=== PATIENT | female | born 1940 | race Caucasian/White ===

== ENCOUNTER 2024-02-21 11:17 | Emergency (ER) | payer OTHER ==
[2024-02-21] MEDS ORDERED: NA CHLORIDE 0.9% 1,000 ML ONE (13:15)
[2024-02-21 13:32] LABS: Absolute Eosinophils 0.3 K/uL (0-0.5); Absolute Lymphocytes (CBC) 0.7 K/uL (0.7-4.9); Absolute Monocytes 0.6 K/uL (0.1-1.3); Absolute Neutrophil 5.1 K/uL (1.8-8.0); Basophils % 0.6 % (0-1.3); Eosinophils % 4.1 % (0-4.4); Hemoglobin 11.1 g/dL (12.0-15.0); Lymphocytes % 9.8 % (15.3-44.8); MCH 27.1 pg (27.0-35.0); MCHC 31.6 g/dL (32.0-36.0); MCV 85.8 fL (80-100); MPV 8.2 fL (7.6-11.3); Monocytes % 8.8 % (3.3-12.3); Neutrophils % 76.7 % (41.7-73.7); Nucleated Red Blood Cells % 0.1 % (0-0); Platelets 318 thou/uL (152-406); RBC Red Blood Cell Count 4.09 M/uL (3.86-4.86); Red Cell Distribution Width 16.9 % (12.1-15.2)
[2024-02-21 13:33] LABS: Specific Gravity 1.016 (1.005-1.030); Urine Bilirubin NEGATIVE (Negative); Urine Blood Negative (Negative); Urine Clarity Clear (Clear); Urine Color Light-Yellow (Yellow); Urine Glucose NEGATIVE (Negative); Urine Ketones NEGATIVE (Negative); Urine Microscopic Reflex YN NO UMIC; Urine Nitrite NEGATIVE (Negative); Urine Protein NEGATIVE (Negative); Urine Urobilinogen Normal (Normal); Urine pH 5.5 (5.0-7.0)
[2024-02-21 13:46] LABS: Albumin 3.5 g/dL (3.4-5.0); Albumin/Globulin Ratio 0.8 (1.1-1.8); Anion Gap 12.6 mEq/L (5.0-15.0); Bilirubin Total 0.3 mg/dL (0.2-1.0); Globulin 4.5 g/dL (2.3-3.5); Potassium 4.6 mEq/L (3.5-5.1)
--- NOTE | 2024-02-21 14:33 | RAD REPORT ---
EXAMINATION: CT ABDOMEN AND PELVIS WITH CONTRAST CLINICAL INDICATION: Abdominal pain TECHNIQUE: CT abdomen and pelvis was performed, after the administration of 100 cc Isovue-300.. Sagit conner and coronal reconstructions were obtained. One or more of the following dose reduction techniques were used: Automated exposure control, adjustment of the mA and kV according to patient si ze, and iterative reconstruction. Unless otherwise specified, incidental findings do not require dedicated imaging follow-up. [id number]. Oral contrast was not given which limits evaluation of bowel and appendix. COMPARISON: none FINDINGS: 1.2 cm calculus left renal pelvis. Minimal left hydronephrosis. The liver, spleen pancreas and adrenals unremarkable No evidence of diverticulitis.. Moderate to large amount of stool throughout the colon. The appendix is normal. Mild enlargement of the right ovary. It contains areas of increased density.. Calcification within th e left ovary. Marked compression deformity L1 vertebral body estimated 85% compression. Retropulsion of fracture fr agment into the spinal canal results in approximately 40% narrowing. The fracture appears subacute. Moderate compression deformity L3 vertebral body has more chronic appearance. : IMPRESSION: 1.2 cm calculus left renal pelvis with minimal left hydronephrosis Moderate to marked stool burden Mild enlargement of the right ovary. It contains areas of increased density.. Calcification within th e left ovary.. These are likely benign findings. Follow-up pelvic ultrasound in 3 months recommended for reevaluation. Marked compression deformity L1 vertebral body estimated 85% compression. Retropulsion of fracture fr agment into the spinal canal results in approximately 40% narrowing. The fracture appears subacute.
--- NOTE | 2024-02-21 15:27 | EDPHYS ---
Physician Documentation [facility] Name: Yelena Rouse Age: 83 yrs Sex: Female : 1940 Arrival Date: 02/21/2024 Time: 11:17 Bed 14 Private MD: ED Physician Christian Mccann HPI: 02/20 12:16 This 83 yrs old Female presents to ER via Ambulatory with complaints of Constipation. rn 12:16 The patient presents with abdominal pain in the left lower quadrant. Onset: The rn symptoms/episode began/occurred 1 week(s) ago. The symptoms do not radiate. Associated signs and symptoms: Pertinent positives: constipation, Pertinent negatives: blood in stools, fever. Modifying factors: The symptoms are alleviated by nothing, the symptoms are aggravated by nothing. Severity of pain: At its worst the pain was mild in the emergency department the pain is unchanged. The patient has not experienced similar symptoms in the past. Patient reports 1 week of left lower quadrant abdominal pain associated with constipation. Using laxatives and enemas with small ramon coming out but no full relief. No fever or chills. No vomiting. Does report nausea. Decreased appetite. No blood in stool. Is passing gas.. Historical: - Allergies: 11:48 Aspirin; jl7 - Home Meds: 11:48 gabapentin oral [Active]; jl7 11:52 Methocarbamol Oral [Active]; Metformin Oral [Active]; jl7 - PMHx: 11:48 Chronic back pain; jl7 11:52 Diabetes mellitus; jl7 - PSHx: 11:48 section; jl7 - Immunization history:: Adult Immunizations unknown. - Infectious Disease History:: Denies. - Social history:: Smoking status: Patient denies any tobacco usage or history of. - Family history:: not pertinent. - Hospitalizations: : No recent hospitalization is reported. ROS: 12:16 Constitutional: Negative for fever, chills, and weight loss, Cardiovascular: Negative rn for chest pain, palpitations, and edema, Respiratory: Negative for shortness of breath, cough, wheezing, and pleuritic chest pain, Abdomen/GI: Positive for abdominal pain with nausea and constipation Back: Negative for injury and pain, : Negative for injury, bleeding, discharge, and swelling, MS/Extremity: Negative for injury and deformity, Skin: Negative for injury, rash, and discoloration, Neuro: Negative for headache, weakness, numbness, tingling, and seizure, Exam: 12:16 Constitutional: This is a well developed, well nourished patient who is awake, alert, rn and in no acute distress. Cardiovascular: Regular rate and rhythm. No pulse deficits. Respiratory: No increased work of breathing, no retractions or nasal flaring. Abdomen/GI: Soft, mild left lower quadrant and left upper quadrant tenderness. No rebound or guarding MS/ Extremity: Pulses equal, no cyanosis. Neuro: Awake and alert, GCS 15 Vital Signs: 12:35 BP 153 / 85; Pulse 89; Resp 15; Temp 97.1; Pulse Ox 97% ; Weight 72.57 kg; Height 5 ft. ll1 4 in. ; Pain 9/10; 13:26 BP 176 / 79; Pulse 80; Resp 17 S; Pulse Ox 96% on R/A; kc6 15:19 BP 169 / 91; Pulse 83; Resp 18 S; Pulse Ox 97% on R/A; kc6 16:39 BP 179 / 86; Pulse 78; Resp 18 S; Pulse Ox 97% on R/A; kc6 12:35 Body Mass Index 27.46 (72.57 kg, 162.56 cm) ll1 12:35 Pain Scale: Adult ll1 MDM: 11:39 Medical Screening Exam initiated rn 15:24 Differential diagnosis: non-specific abd pain, pancreatitis, Colitis, diverticulitis, rn bowel obstruction. Data reviewed: vital signs, nurses notes, lab test result(s), radiologic studies, CT scan, and as a result, I will admit patient. Consideration of Admission/Observation Patient was admitted/placed on observation. Escalation of care including admission/observation considered. Counseling: I had a detailed discussion with the patient and/or guardian regarding the historical points, exam findings, and any diagnostic results supporting the discharge/admit diagnosis, lab results, radiology results, the need for further work-up and treatment in the hospital, the need to transfer to another facility, for higher level of care, [facility] does not immediately have the required specialist. ED course: CT shows 85% compression fracture of L1 with retropulsion and stenosis of central canal. Patient reports 10 out of 10 pain. Happened 1 week ago but reports difficulty walking and pain that is not controlled. Likely causing ileus as CT does not show obstruction or infection. Offered patient transfer for spinal evaluation and she wants to be transferred as opposed to follow-up.. 02/20 11:50 Order name: CBC with Diff; Complete Time: 15:10 rn 02/20 11:50 Order name: CMP; Complete Time: 15:10 rn 02/20 11:50 Order name: Lipase; Complete Time: 15:10 rn 02/20 11:50 Order name: Urinalysis w/ reflexes; Complete Time: 15:10 rn 02/20 11:50 Order name: CT Abd/Pelvis - IV Contrast Only; Complete Time: 15:10 rn 02/20 11:50 Order name: IV Saline Lock; Complete Time: 13:25 rn 02/20 11:50 Order name: Labs collected and sent; Complete Time: 13:25 rn Administered Medications: 13:25 Drug: NS 0.9% IV 1000 ml IV at 1 bolus Per protocol; to be given as a bolus over 60 kc6 minutes Route: IV; Rate: 1 bolus; Site: left antecubital; 15:19 Follow up: Response: No adverse reaction; IV Status: Completed infusion; IV Intake: kc6 1000ml Disposition Summary: 02/21/24 15:26 Transfer Ordered Notes: Transfer Location: [facility] rn Reason: Higher level of care rn Condition: Stable rn Problem: new rn Symptoms: have improved rn Accepting Physician: (02/21/24 16:53) kc6 Diagnosis - Constipation, unspecified rn - Wedge compression fracture of first lumbar vertebra - with retropulsion and central rn canal stenosis Forms: - Medication Reconciliation Form rn - SBAR form rn Signatures: Dispatcher [employer] EDChristian Degroot MD MD rn Leal, Jahala, RN RN jl7 Hodan Birch, RN RN kc6 Corrections: (The following items were deleted from the chart) 11:50 11:50 CBC+H.LAB.BRZ ordered. EDMS EDMS 11:50 11:50 COMPREHENSIVE METABOLIC PANEL+C.LAB.BRZ ordered. EDMS EDMS 11:50 11:50 LIPASE+C.LAB.BRZ ordered. EDMS EDMS 11:50 11:50 Urinalysis+U.LAB.BRZ ordered. EDMS EDMS 11:50 11:50 Abdomen Pelvis W Con+CT.RAD.BRZ ordered. EDMS EDMS 16:53 15:26 Dr. liu kc6
--- NOTE | 2024-02-21 15:27 | ER ---
Nurse's Notes [facility] Name: Yelena Rouse Age: 83 yrs Sex: Female : 1940 Arrival Date: 02/21/2024 Time: 11:17 Bed 14 Private MD: Diagnosis: Constipation, unspecified;Wedge compression fracture of first lumbar vertebra-with retropulsion and central canal stenosis Presentation: 02/20 11:44 Chief complaint: Patient states: Last BM more than a week ago. Coronavirus screen: At jl this time, the client does not indicate any symptoms associated with coronavirus-19. Ebola Screen: No symptoms or risks identified at this time. Risk Assessment: Do you want to hurt yourself or someone else? Patient reports no desire to harm self or others. Onset of symptoms is unknown. 11:44 Method Of Arrival: Ambulatory [facility] 11:44 Initial Sepsis Screen: Does the patient meet any 2 criteria? No. Patient's initial jl7 sepsis screen is negative. Does the patient have a suspected source of infection? No. Patient's initial sepsis screen is negative. 11:44 Acuity: WILFRID 3 jl7 Triage Assessment: 11:44 General: Appears in no apparent distress. uncomfortable, Behavior is calm, cooperative, jl7 appropriate for age. Pain: Complains of pain in anterior aspect of left lateral abdomen and left lower quadrant. Neuro: Level of Consciousness is awake, alert, obeys commands, Oriented to person, place, time, situation. Cardiovascular: Patient's skin is warm and dry. Respiratory: Airway is patent Respiratory effort is even, unlabored, Respiratory pattern is regular, symmetrical. GI: Reports constipation. Derm: Skin is pink, warm \T\ dry. Historical: - Allergies: 11:48 Aspirin; jl7 - Home Meds: 11:48 gabapentin oral [Active]; 11:52 Methocarbamol Oral [Active]; Metformin Oral [Active]; - PMHx: 11:48 Chronic back pain; 11:52 Diabetes mellitus; 7 - PSHx: 11:48 section; jl7 - Immunization history:: Adult Immunizations unknown. - Infectious Disease History:: Denies. - Social history:: Smoking status: Patient denies any tobacco usage or history of. - Family history:: not pertinent. - Hospitalizations: : No recent hospitalization is reported. Screenin:46 Abuse screen: Denies threats or abuse. Denies injuries from another. Tuberculosis jl7 screening: No symptoms or risk factors identified. 13:26 [facility] ED Fall Risk Assessment (Adult) History of falling in the last 3 months, kc6 including since admission No falls in past 3 months (0 pts) Confusion or Disorientation No (0 pts) Intoxicated or Sedated No (0 pts) Impaired Gait No (0 pts) Mobility Assist Device Used No (0 pt) Altered Elimination No (0 pt) Score/Fall Risk Level 0 - 2 = Low Risk Oriented to surroundings, Maintained a safe environment. Nutritional screening: No deficits noted. Assessment: 11:46 Reassessment: Dr. Mccann in triage assessing pt. jl7 13:26 General: Appears in no apparent distress. comfortable, well groomed, well developed, kc6 Behavior is calm, cooperative, appropriate for age. Pain: Complains of pain in back and abdomen. Neuro: Level of Consciousness is awake, alert, obeys commands, Oriented to person, place, time, situation, Appropriate for age. Cardiovascular: Capillary refill < 3 seconds. Respiratory: Airway is patent Trachea midline Respiratory effort is even, unlabored, Respiratory pattern is regular, symmetrical. GI: Bowel sounds hypoactive in right upper quadrant, left upper quadrant, right lower quadrant and left lower quadrant Abdomen is tender to palpation in right lower quadrant and left lower quadrant Reports lower abdominal pain, constipation, cramping, Patient currently denies diarrhea, nausea, vomiting. : No signs and/or symptoms were reported regarding the genitourinary system. EENT: No signs and/or symptoms were reported regarding the EENT system. Derm: No signs and/or symptoms reported regarding the dermatologic system. Skin is intact, is healthy with good turgor, Skin is pink, warm \T\ dry. Musculoskeletal: No signs and/or symptoms reported regarding the musculoskeletal system. Circulation, motion, and sensation intact. Capillary refill < 3 seconds, Range of motion: intact in all extremities. 15:19 Reassessment: Patient appears in no apparent distress at this time. No changes from kc6 previously documented assessment. Patient and/or family updated on plan of care and expected duration. Pain level reassessed. Patient is alert, oriented x 3, equal unlabored respirations, skin warm/dry/pink. 16:39 Reassessment: Patient appears in no apparent distress at this time. No changes from kc6 previously documented assessment. Patient and/or family updated on plan of care and expected duration. Pain level reassessed. Patient is alert, oriented x 3, equal unlabored respirations, skin warm/dry/pink. Vital Signs: 12:35 BP 153 / 85; Pulse 89; Resp 15; Temp 97.1; Pulse Ox 97% ; Weight 72.57 kg; Height 5 ft. ll1 4 in. ; Pain 9/10; 13:26 BP 176 / 79; Pulse 80; Resp 17 S; Pulse Ox 96% on R/A; kc6 15:19 BP 169 / 91; Pulse 83; Resp 18 S; Pulse Ox 97% on R/A; kc6 16:39 BP 179 / 86; Pulse 78; Resp 18 S; Pulse Ox 97% on R/A; kc6 12:35 Body Mass Index 27.46 (72.57 kg, 162.56 cm) ll1 12:35 Pain Scale: Adult ll1 ED Course: 11:20 Patient arrived in ED. im 11:39 Christian Mccann MD is Attending Physician. rn 11:44 Arm band placed on right wrist. jl7 11:46 Patient has correct armband on for positive identification. jl7 13:13 Triage completed. jl7 13:14 Hodan Birch, JASWINDER is Primary Nurse. kc6 13:25 Pulse ox on. NIBP on. Door closed. Noise minimized. Lights dimmed. Warm blanket given. kc6 Pillow given. 13:25 Inserted saline lock: 20 gauge in left antecubital area, using aseptic technique. Blood kc6 collected. Flushed with 10 mL NS. Patient maintains SpO2 saturation greater than 95% on room air. 13:[address] via stretcher. kc6 14:04 CT Abd/Pelvis - IV Contrast Only In Process Unspecified. EDMS 15:48 initiated transfer to [facility]. bd 16:52 No provider procedures requiring assistance completed. Patient transferred, IV remains kc6 in place. Administered Medications: 13:25 Drug: NS 0.9% IV 1000 ml IV at 1 bolus Per protocol; to be given as a bolus over 60 kc6 minutes Route: IV; Rate: 1 bolus; Site: left antecubital; 15:19 Follow up: Response: No adverse reaction; IV Status: Completed infusion; IV Intake: kc6 1000ml Medication: 11:46 VIS not applicable for this client. jl7 Intake: 15:19 IV: 1000ml; Total: 1000ml. kc6 Outcome: 15:26 ER care complete, transfer ordered by . rn 16:53 Transferred by ground EMS to [facility], Transfer form completed. kc6 16:53 Condition: good 16:53 Instructed on the need for transfer, 16:53 Patient left the ED. kc6 Signatures: Dispatcher [employer] EDMS Angely Stephenson Roman, MD MD rn Leal, Jahala RN RN jl7 Leisa Howard RN RN ll1 Hodan Birch RN RN kc6 Xiomy Skinner
[2024-02-21 17:20] VITALS: TEMP 97.1
[2024-02-21 17:31] VITALS: O2SAT 97
[2024-02-21 17:32] VITALS: BP 179/86
== END 2024-02-21 16:53 | disposition short-term general hospital (02) ==
LOC: ER 11:17
DX: K59.00 Constipation, unspecified (principal); S32.010A Wedge compression fracture of first lumbar vertebra, initial encounter for closed fracture; E11.9 Type 2 diabetes mellitus without complications
CPT/HCPCS: 85025; 36415; 81003; 83690; 80053; 74177; Q9967; J7030

== ENCOUNTER 2024-06-10 12:07 | Emergency (ER) | payer OTHER ==
--- OUTSIDE RECORDS SUMMARY | 2024-06-10 12:09 | XMS REPORT | Continuity of Care Document ---
Author Name Unknown Address [address] [facility] [facility] [place] [address] [facility] [place] [facility] [place] Address [address] 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 Name Role Phone Pcp, Pcp Primary Care Physician Unavailab rosales No, PCP Attending Clinician Unavailable Ellie LIRIANO, Karthikeyan Bose Attending C linician Cailin LIRIANO, Mc Gray Attending Clinician + [phone] Kasi LIRIANO, Joe Stack Attending Clinician [phone] JOE PERALTA Attending Clinician Unavaila ble Payers Payer Name Policy Type Policy Number Effective Date Expirati on Date Source MEDICARE PART A AND B Medicare [id number] 2024 00:00:00 CAPPTURE Other [id number] 2024 00:00:00 Allergies, Adverse Reactions, Alerts Allergy Name Allergy Type Status Severity Reaction(s) Onset Date Inactive Date Treating Clinician Comments Source Aspirin Propensi ty to adverse reaction s Active 2023-04 00:00: 00 Ramiro Gibson Social History Social Habit Start Date Stop Date Quantity Comments Source Gender identity 2024-02-21 19:38:01 Identifies as female gender (finding) Elian Gibson ASSERTION Possible Elian Gibson Sexual orientation [facility] History of Social function 2024-02-22 00:00:00 2024-02-22 00:00:00 [facility] Smoking Status Start Date Stop Date Source Tobacco smoking consumption unknown [facility] Medications Ordered Medication Name Filled Medication Name Start Date Stop Date Current Medication? Ordering Clinician Indication Dosage Frequency Signature (SIG) Comments Components Source polyethylen e glycol (PEG) 3350 (Miralax) packet 17 g polyethylen e glycol (PEG) 3350 (Miralax) packet 17 g 2023-04 06:10: 00 Yes 17g Q.5D 17 g, Oral, 2 times daily, First dose (after last modificati on) on Mon02/22/24 at 0610, Dissolve 17 g in 120 to 240 mL (4 to 8 ounces) of beverage. Ramiro mathews [facility] bisacodyl (Dulcolax) suppository 10 mg bisacodyl (Dulcolax) suppository 10 mg 2023-04 03:20: 00 Yes 10mg QD 10 mg, Rectal, Daily, First dose on Mon02/22/24 at 0320 Ramiro mathews [facility] HYDROmorpho ne PF (Dilaudid) injection 0.2 mg HYDROmorpho ne PF (Dilaudid) injection 0.2 mg 2023-04 02:50: 00 02-21 02:53 :00 No .2mg 0.2 mg, Intravenou s, Once, On Mon02/22/24 at 0250, For 1 dose Ramiro Moreira [facility] morphine PF injection 2 mg morphine PF injection 2 mg 2023-04 20:15: 00 02-20 20:38 :00 No 2mg 2 mg, Intravenou s, Once, On Mon02/21/24 at 2015, For 1 dose Ramiro Moreira [facility] Vital Signs Vital Name Observation Time Observation Value Comments S [place] Systolic blood pressure 2024-02-22 12:00:00 187 mm[Hg] [facility] Diastolic blood pressure 2024-02-22 12:00:00 89 mm[Hg] [facility] Heart rate 2024-02-22 12:00:00 102 /min Juan Carlos blackmon [facility] Respiratory rate 2024-02-22 12:00:00 20 /min [facility] Oxygen saturation in Arterial blood by Pulse oximetry 2024-02-22 12:00:00 94 /min [facility] Body temperature 2024-02-22 06:00:00 36.89 Cristina [facility] Body height 2024-02-22 02:02:00 165.1 cm Aaron juancarlos Harish [facility] Body weight 2024-02-22 02:02:00 65 kg Aaron faribal [facility] BMI 2024-02-22 02:02:00 23.85 kg/m2 [facility] Systolic blood pressure 2024-02-22 12:00:00 187 mm[Hg] [facility] Diastolic blood pressure 2024-02-22 12:00:00 89 mm[Hg] [facility] Heart rate 2024-02-22 12:00:00 102 /min [facility] ial [facility] Respiratory rate 2024-02-22 12:00:00 20 /min [facility] Oxygen saturation in Arterial blood by Pulse oximetry 2024-02-22 12:00:00 94 /min [facility] Body temperature 2024-02-22 06:00:00 36.89 Cristina [facility] Body height 2024-02-22 02:02:00 165.1 cm [facility] weight 2024-02-22 02:02:00 65 kg Aaron juancarlos [facility] BMI 2024-02-22 02:02:00 23.85 kg/m2 [facility] Procedures Procedure Date / Time Performed Performing Clinician Source POC GLUCOSE UNSOLICITED RESULTS 2024-02-22 11:27:00 Joe Peralta [facility] XR LUMBAR SPINE 2-3 VIEWS 2024-02-22 04:16:00 Sara Piper [facility] CT THORACIC SPINE WO IV CONTRAST 2024-02-21 23:59:00 Jake Rodriguez [facility] UA WITH CULTURE IF INDICATED 2024-02-21 21:56:00 Jake Rodriguez [facility] CT CERVICAL SPINE WO IV CONTRAST 2024-02-21 21:18:12 Mahmoud[facility] COMPREHENSIVE METABOLIC PANEL 2024-02-21 20:02:00 Calder[facility] COMPLETE BLOOD COUNT W/DIFF AND PLATELET 2024-02-21 20:02:00 Calderon Rodriguezsejennifer Moraafa [facility] COMPLETE BLOOD COUNT 2024-02-21 20:02:00 [facility] AUTOMATED DIFFERENTIAL 2024-02-21 20:02:00 Calderon Mathias [facility] 12 lead [facility] Encounters Start Date/Time End Date/Time Encounter Type Admission Type Attending Clinicians Care Facility Care Department Encounter ID Source 2024-04-30 08:24:01 Outpatient No, PCP [facility] [id number] [place] [facility] 2024-02-21 18:26:00 2024-02-22 12:33:00 Emergency Karthikeyan Cyr Salil Kumar Hudson, Jessica [facility] [id number] Ramiro mathews [facility] 2024-02-21 18:26:00 2024-02-22 12:33:00 Emergency Emergency JOE PERALTA [facility] General Medicine [id number] [facility] 2024-02-21 23:08:43 2024-02-21 23:59:00 Outpatient [facility] [id number] [facility] 2024-02-21 23:02:21 2024-02-21 23:59:00 Outpatient [facility] [id number] [facility] 2024-02-21 20:27:49 2024-02-21 23:59:00 Outpatient [facility] [id number] [facility] Results Test Description Test Time Test Comments Results Result Co mments Source [facility] Consult Notes Date/Time Note Provider Source 2024-02-22 11:07:15 Associated Order(s): IP CONSULT TO SOCIAL WORK Reason For Consult SW consulted for transport home. Pt brought via EMS fro [place]. Pt states her address on chart is her new address and the movers have not arrived and would like to go to her son's home at [address] [place] [address]. CARMENCITA arranged [facility]. GER OF INFORMATION R D Intern [facility] Notes Date/Time Note Provider Source 2024-02-22 12:33:28 [facility] * Calculated C-SSRS Risk Score (Lifetime/Recent) Answer Date of Assessment Author No Risk Indicated 02/21/2024 6:25 PM MANAGER OF INFORMATION Alejandra Simon RN * [place] Suicide Severity Rating Scale (Screener/Recent Self-Report) Question Answer Date of Assessment Author 1. Wish to be (Past 1 Month) No 02/21/2024 6:25 PM MANAGER OF INFORMATION José Antonio Pereira RN 2. Non-Specific Active Suici marlon Thoughts (Past 1 Month) No 02/21/2024 6:25 PM MANAGER OF INFORMATION Malena Pereira RN 6. Suicidal Behavior (Lifetime) No 6:25 PM MANAGER OF INFORMATION Alejandra Pereira RN [facility] [id number] 12:33:28* Sara Olivera MD - 02/22/2024 6:06 AM MANAGER OF INFORMATION ORS Spine Brief Note Standing upright imaging of the lumbar spine completed on 02/21 reviewed and found to be appropriate for non-operative management - Spine precautions: No bending, twisting, lifting >10 lbs - Activity as tolerated - Ok for DVT prophylaxis per primary team. - Pending ORS Spine Surgeries: None. Patient not currently clear for dc. Needs bowel regimen that was ordered at 3:20 AM and has not been given yet. Potentially may need to be admitted for bowel regimen and PT. Her small bowel movements are not due to a neuro cause, more due to pain when trying to strain. Once she is feeling better in terms of bowel movements she may dc. Please follow up with ROBERT Cruz in 2 weeks. Please call [phone] to make an appointment. Please page the ORS Spine resident through the work over rig operator for questions or call [phone] Monday - Monday between 6 am and 4 pm. Please call [phone]) for emergencies. Sara Olivera MD [facility]2024-11-21 12:33:28Pending Results Health Maintenance Due Date Last Done Comments Bone Density Scan 1940 Diabetes: Hemoglobin A1C 1940 Lipid Panel 1940 Medicare Annual Wellness (AWV) 1940 Annual Physical 1945 Diabetes: Foot Exam 1952 Diabetes: Retinopathy Screening 1952 DTaP/Tdap/Td Vaccines (1 - Tdap) 1961 Diabetes: Urine Protein Screening 1961 Zoster Vaccines (1 of 2) 1992 Pneumococcal Vaccine: 65+ Ye ars (1 of 1 - PCV) 2007 Respiratory Syncytial Virus (RSV) or >=60 (1 - 1-dose 75+ series) 2017 Influenza Vaccine (#1) 2023 HIB Vaccines Aged Out No longer eligi ble based on patient's age to complete this topic HPV Vaccines Aged Out No longer eligi ble based on patient's age to complete this topic Hepatitis A Vaccines Aged Out No long er eligible based on patient's age to complete this topic Hepatitis B Vaccines Aged Out No long er eligible based on patient's age to complete this topic IPV Vaccines Aged Out No longer eligi ble based on patient's age to complete this topic Meningococcal Vaccine Aged Out No watson sebastian eligible based on patient's age to complete this topic Rotavirus Vaccines Aged Out No longer eligible based on patient's age to complete this topic [facility] [id number] 12:33:28 Diagnosis Compression fx, lumbar spine , closed, initial encounter (HCC) - Primary [facility] [id number] 12:33:28 [facility]
--- NOTE | 2024-06-10 13:47 | RAD REPORT ---
EXAM:Extremity Venous Uni Ltd HISTORY: Left leg pain TECHNIQUE: Sonographic evaluation lower extremity performed.Grayscale, color and spectral analysis performed on all vessels COMPARISON: None. FINDINGS: Left common femoral, superficial femoral, greater saphenous, popliteal and posterior tibial veins are compressible and demonstrate augmentation. Doppler demonstrates good flow. 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 IMPRESSION: No evidence of deep venous thrombosis involving the left lower extremity. 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
--- NOTE | 2024-06-10 13:48 | RAD REPORT ---
Exam:Knee Left 3 View HISTORY: Left knee pain FINDINGS: No fracture or dislocation seen Mild to moderate osteoarthritis involves the knee consisting of joint space narrowing and osteophytes . Mild lateral subluxation of the tibia. Small joint effusion. Vascular calcifications
[2024-06-10 14:07] LABS: Absolute Eosinophils 0.1 K/uL (0-0.5); Absolute Lymphocytes (CBC) 0.8 K/uL (0.7-4.9); Absolute Neutrophil 6.9 K/uL (1.8-8.0); Basophils % 0.5 % (0-1.3); Eosinophils % 1.6 % (0-4.4); Hematocrit 32.1 % (36.0-45.0); Hemoglobin 10.7 g/dL (12.0-15.0); Lymphocytes % 9.3 % (15.3-44.8); MCH 27.7 pg (27.0-35.0); MCHC 33.4 g/dL (32.0-36.0); MPV 8.3 fL (7.6-11.3); Monocytes % 11.5 % (3.3-12.3); Neutrophils % 77.1 % (41.7-73.7); Nucleated Red Blood Cells % 0.1 % (0-0); Platelets 304 thou/uL (152-406); RBC Red Blood Cell Count 3.86 M/uL (3.86-4.86); Red Cell Distribution Width 17.4 % (12.1-15.2)
[2024-06-10 14:17] LABS: Anion Gap 10.2 mEq/L (5.0-15.0); Potassium 4.2 mEq/L (3.5-5.1)
--- NOTE | 2024-06-10 15:25 | EDPHYS ---
Physician Documentation [facility] Name: Yelena Rouse Age: 84 yrs Sex: Female : 1940 Arrival Date: 06/10/2024 Time: 12:07 Bed 24 Private MD: ED Physician Christian Mccann HPI: 06/10 13:19 This 84 yrs old Female presents to ER via Wheelchair with complaints of Leg Swelling - rn knee, Low Back Pain. 13:19 The patient presents with decreased range of motion, pain, swelling. The complaints rn affect the left knee. 13:20 Onset: The symptoms/episode began/occurred 2 day(s) ago. Modifying factors: The rn symptoms are alleviated by remaining still, the symptoms are aggravated by movement, weight bearing, bending knee. Associated signs and symptoms: Pertinent positives: swelling, Pertinent negatives fever, warmth, weakness. Severity of symptoms: At their worst the symptoms were moderate, in the emergency department the symptoms are unchanged. The patient has not experienced similar symptoms in the past. Patient reports left knee pain and swelling. No fever or chills. No injury. Patient reports has chronic low back pain and not sure if has been walking funny to stress the left knee. Has had left knee problems before. Has never had infected joint or septic arthritis. Improved with ice and brace but still hurts to ambulate.. Historical: - Allergies: 12:52 Aspirin (Upset stomach); hb - PMHx: 12:52 chronic back pain; diabetes mellitus; hb - PSHx: 12:52 section; hb - Immunization history:: Adult Immunizations up to date. - Infectious Disease History:: Denies. - Social history:: Smoking status: Patient denies any tobacco usage or history of. - Family history:: not pertinent. - Hospitalizations: : No recent hospitalization is reported. ROS: 13:20 Constitutional: Negative for fever, chills, and weight loss, Cardiovascular: Negative rn for chest pain, palpitations, and edema, Respiratory: Negative for shortness of breath, cough, wheezing, and pleuritic chest pain, Abdomen/GI: Negative for abdominal pain, nausea, vomiting, diarrhea, and constipation, Back: Negative for injury and pain, MS/Extremity: Positive for left knee pain and swelling Skin: Negative for injury, rash, and discoloration, Neuro: Negative for headache, weakness, numbness, tingling, and seizure, Exam: 13:20 Constitutional: This is a well developed, well nourished patient who is awake, alert, rn and in no acute distress. MS/ Extremity: Pulses equal, no cyanosis. Neurovascular intact. Mild suprapatellar knee effusion palpated. No warmth or erythema. Pain with extension and flexion of knee Vital Signs: 12:50 BP 140 / 68; Pulse 86; Resp 16; Temp 97.9; Pulse Ox 100% on R/A; Weight 68.49 kg; hb Height 5 ft. 5 in. ; Pain 10; 12:50 Body Mass Index 25.13 (68.49 kg, 165.1 cm) hb 12:50 Pain Scale: Adult hb MDM: 12:18 Medical Screening Exam initiated rn 15:23 Differential diagnosis: Kennedy's cyst, knee effusion, sprain, arthritis, reactive rn arthritis. Data reviewed: vital signs, nurses notes, lab test result(s), radiologic studies, plain films, ultrasound, and as a result, I will discharge patient. Counseling: I had a detailed discussion with the patient and/or guardian regarding the historical points, exam findings, and any diagnostic results supporting the discharge/admit diagnosis, lab results, radiology results, the need for outpatient follow up, to return to the emergency department if symptoms worsen or persist or if there are any questions or concerns that arise at home. Special discussion: I discussed with the patient/guardian in detail that at this point there is no indication for admission to the hospital. It is understood, however, that if the symptoms persist or worsen the patient needs to return immediately for re-evaluation. ED course: Ultrasound shows Kennedy's cyst, no DVT. X-ray shows moderate arthritis with small knee effusion. Normal WBC. Patient is afebrile. Low risk of septic arthritis, at this conversation with patient and joint decision to not pursue knee aspiration at this time as we have other reasons to suggest her pain. Recommend rest, brace, ice and Ortho follow-up if symptoms do not improve. 06/10 13:04 Order name: CBC with Diff; Complete Time: 14:16 rn 06/10 13:04 Order name: Basic Metabolic Panel; Complete Time: 14:18 rn 06/10 13:04 Order name: XRAY Knee LEFT 3 view; Complete Time: 14:02 rn 06/10 13:04 Order name: Extremity Venous Uni Ltd US; Complete Time: 14:02 rn 06/10 13:04 Order name: IV Start; Complete Time: 13:59 rn Administered Medications: 15:34 Drug: Ketorolac IVP 15 mg IVP once Route: IVP; Site: left forearm; jb4 15:46 Follow up: Response: Medication administered at discharge. jb4 Disposition Summary: 06/10/24 15:24 Discharge Ordered Notes: Location: Home rn Problem: new rn Symptoms: are unchanged rn Condition: Stable rn Diagnosis - Pain in left knee rn - Synovial cyst of popliteal space [Kennedy], left knee rn Followup: rn - With: Private Physician - When: As needed - Reason: Recheck today's complaints, Re-evaluation by your physician Discharge Instructions: - Discharge Summary Sheet rn - Arthritis rn - Kennedy Cyst rn - Acute Knee Pain, Adult rn Forms: - Medication Reconciliation Form rn - Antibiotic mill turner - Prescription Opioid Use rn - Patient Portal Instructions rn - Leadership Thank You Letter rn Signatures: Dispatcher [employer] Christian Razo MD MD rn Baxter, Heather RN Yordan Marquez RN RN jb4
--- NOTE | 2024-06-10 15:25 | ER ---
Nurse's Notes [facility] Name: Yelena Rouse Age: 84 yrs Sex: Female : 1940 Arrival Date: 06/10/2024 Time: 12:07 Bed 24 Private MD: Diagnosis: Pain in left knee;Synovial cyst of popliteal space [Kennedy], left knee Presentation: 06/10 12:50 Chief complaint: Left knee pain upon waking 2 days ago, chronic low back pain worse hb today. Coronavirus screen: At this time, the client does not indicate any symptoms associated with coronavirus-19. Ebola Screen: No symptoms or risks identified at this time. Initial Sepsis Screen: Does the patient meet any 2 criteria? No. Patient's initial sepsis screen is negative. Does the patient have a suspected source of infection? No. Patient's initial sepsis screen is negative. Risk Assessment: Do you want to hurt yourself or someone else? Patient reports no desire to harm self or others. Onset of symptoms was June 08, 2024. 12:50 Method Of Arrival: Wheelchair hb 12:50 Acuity: WILFRID 3 hb Historical: - Allergies: 12:52 Aspirin (Upset stomach); hb - PMHx: 12:52 chronic back pain; diabetes mellitus; hb - PSHx: 12:52 section; hb - Immunization history:: Adult Immunizations up to date. - Infectious Disease History:: Denies. - Social history:: Smoking status: Patient denies any tobacco usage or history of. - Family history:: not pertinent. - Hospitalizations: : No recent hospitalization is reported. Screenin:47 [facility] ED Fall Risk Assessment (Adult) History of falling in the last 3 months, jb4 including since admission No falls in past 3 months (0 pts) Confusion or Disorientation No (0 pts) Intoxicated or Sedated No (0 pts) Impaired Gait Yes (1 pt) Mobility Assist Device Used Yes (1 pt) Altered Elimination No (0 pt) Score/Fall Risk Level 0 - 2 = Low Risk Oriented to surroundings, Maintained a safe environment. Abuse screen: Denies threats or abuse. Nutritional screening: No deficits noted. Tuberculosis screening: No symptoms or risk factors identified. Assessment: 15:10 General: Appears in no apparent distress. comfortable, Behavior is calm, cooperative, jb4 appropriate for age. Pain: Complains of pain in left knee Pain does not radiate. Pain currently is 8 out of 10 on a pain scale. Neuro: Level of Consciousness is awake, alert, obeys commands, Oriented to person, place, time, situation. Cardiovascular: Patient's skin is warm and dry. Respiratory: Airway is patent Respiratory effort is even, unlabored, Respiratory pattern is regular, symmetrical. Derm: Skin is intact, Skin is pink, warm \T\ dry. Musculoskeletal: Circulation, motion, and sensation intact. Range of motion: intact in all extremities. 15:47 Reassessment: Patient appears in no apparent distress at this time. Patient and/or jb4 family updated on plan of care and expected duration. Pain level reassessed. Patient is alert, oriented x 3, equal unlabored respirations, skin warm/dry/pink. Vital Signs: 12:50 BP 140 / 68; Pulse 86; Resp 16; Temp 97.9; Pulse Ox 100% on R/A; Weight 68.49 kg; hb Height 5 ft. 5 in. ; Pain 10/10; 12:50 Body Mass Index 25.13 (68.49 kg, 165.1 cm) hb 12:50 Pain Scale: Adult hb ED Course: 12:12 Patient arrived in ED. al6 12:18 Christian Mccann MD is Attending Physician. rn 12:52 Triage completed. hb 12:52 Arm band placed on. hb 13:36 Extremity Venous Uni Ltd US In Process Unspecified. EDMS 13:39 XRAY Knee LEFT 3 view In Process Unspecified. EDMS 13:59 Basic Metabolic Panel Sent. bc6 13:59 CBC with Diff Sent. bc6 13:59 Initial lab(s) drawn, by nm, sent to lab. Inserted saline lock: 20 gauge in left bc6 forearm, using aseptic technique. Blood collected. Flushed with 10 mL NS. 15:47 Patient has correct armband on for positive identification. Bed in low position. Call jb4 light in reach. Side rails up X 1. Provided Education on: discharge instructions.. 15:47 No provider procedures requiring assistance completed. IV discontinued, intact, jb4 bleeding controlled, No redness/swelling at site. Pressure dressing applied. Administered Medications: 15:34 Drug: Ketorolac IVP 15 mg IVP once Route: IVP; Site: left forearm; jb4 15:46 Follow up: Response: Medication administered at discharge. jb4 Medication: 15:47 VIS not applicable for this client. jb4 Outcome: 15:24 Discharge ordered by . rn 15:47 Discharged to home ambulatory, jb4 15:47 Condition: stable 15:47 Discharge instructions given to patient, family, Instructed on discharge instructions, follow up and referral plans. Demonstrated understanding of instructions, follow-up care, 15:49 Patient left the ED. jb4 Signatures: Dispatcher [employer] EDMS Christian Mccann MD MD rn Baxter, Heather, RN RN hb Bryson, James, RN RN jb4 Zoraida Ibrahim6 Ninfa Ward6 Corrections: (The following items were deleted from the chart) 12:58 12:50 Acuity: WILFRID 4 hb hb
[2024-06-10] MEDS ORDERED: KETOROLAC 30 MG/ML INJ ONE (15:30)
[2024-06-10 15:53] VITALS: BP 140/68; TEMP 97.9; O2SAT 100
== END 2024-06-10 15:49 | disposition home or self-care (01) ==
LOC: ER 12:07
DX: M71.22 Synovial cyst of popliteal space [Baker], left knee (principal); M54.50 Low back pain, unspecified
CPT/HCPCS: 36415; 80048; 85025; 93971; 96374; 99284

== ENCOUNTER 2025-01-20 13:42 | Emergency (ER) | payer OTHER ==
--- NOTE | 2025-01-20 15:21 | RAD REPORT ---
EXAM: Knee Right 3 View INDICATION: PAIN COMPARISON: None FINDINGS: No acute fracture. No significant knee effusion. No significant focal degenerative changes. Other: Peripheral vascular calcifications. IMPRESSION: No acute osseous abnormality involving the imaged knee.
--- NOTE | 2025-01-20 15:23 | RAD REPORT ---
EXAMINATION: Ribs Left VIEWS: Two views CLINICAL INDICATION: Female, 84 years old. Pain;Swelling COMPARISON: No prior exams IMPRESSION: Suspected acute slightly displaced left lateral sixth and possibly seventh rib fractures. No underlyi ng pneumothorax identified.
--- NOTE | 2025-01-20 15:24 | RAD REPORT ---
EXAM: Chest Single View HISTORY: 84 years Female Pain;Swelling COMPARISON: No prior exams FINDINGS: LUNGS/PLEURA: Blunted left costophrenic angle which could be from scarring or atelectasis. No pneumot horax. CARDIAC/MEDIASTINUM: The cardiac silhouette is within normal limits. UPPER ABDOMEN: No significant abnormality. BONES: No acute abnormality. ACDF in the cervical spine. LINES/TUBES/OTHER: N/A IMPRESSION: Blunted left costophrenic angle could be from small volume of effusion, atelectasis, or scarring. No pneumothorax. Reference dedicated left rib series for possible acute left rib fractures.
[2025-01-20] MEDS ORDERED: KETOROLAC 30 MG/ML INJ ONE (15:39)
[2025-01-20] MEDS ORDERED: ACETAMINOPHEN 500 MG TAB ONE (15:39)
--- NOTE | 2025-01-20 16:12 | EDPHYS ---
Physician Documentation [facility] Name: Yelena Rouse Age: 84 yrs Sex: Female : 1940 Arrival Date: 01/20/2025 Time: 13:42 Bed 20 Private MD: ED Physician James Escobedo HPI: 01/20 19:22 This 84 yrs old Female presents to ER via Ambulatory with complaints of Fall dr5 Injury. 19:22 Details of fall: The patient fell from an upright position, while dancing, while dr5 standing. Onset: The symptoms/episode began/occurred 2 day(s) ago. Patient is a 84-year-old female with history of back pain, diabetes, hypertension kidney disease coming in with left side pain that started 2 days ago after falling on left side. Patient denies chest pain, shortness of breath, abdominal pain, nausea, vomiting, diarrhea.. Historical: - Allergies: 14:09 Aspirin (Upset stomach); dd2 14:09 Codeine; dd2 - PMHx: 14:09 chronic back pain; diabetes mellitus; Hypertensive disorder; Kidney disease; dd2 - PSHx: 14:09 section; dd2 - Immunization history:: Adult Immunizations up to date. - Infectious Disease History:: Denies. - Social history:: Smoking status: Patient denies any tobacco usage or history of. ROS: 19:22 Constitutional: as per hpi dr5 Exam: 19:22 Constitutional: This is a well developed, well nourished patient who is awake, alert, dr5 and in no acute distress. Head/Face: Normocephalic, atraumatic. Eyes: Pupils equal round and reactive to light, extra-ocular motions intact. Lids and lashes normal. Conjunctiva and sclera are non-icteric and not injected. Cornea within normal limits. Periorbital areas with no swelling, redness, or edema. Neck: Trachea midline, no thyromegaly or masses palpated, and no cervical lymphadenopathy. Supple, full range of motion without nuchal rigidity, or vertebral point tenderness. No Meningismus. Chest/axilla: Normal chest wall appearance and motion. Nontender with no deformity. No lesions are appreciated. Cardiovascular: Regular rate and rhythm with a normal S1 and S2. Normal PMI, no JVD. No pulse deficits. Respiratory: Lungs have equal breath sounds bilaterally, clear to auscultation. No rales, rhonchi or wheezes noted. No increased work of breathing, no retractions or nasal flaring. Back: No spinal tenderness. No costovertebral tenderness. Full range of motion. Skin: Warm, dry with normal turgor. Normal color with no rashes, no lesions, and no evidence of cellulitis. Neuro: Awake and alert, GCS 15, oriented to person, place, time, and situation. Cranial nerves II-XII grossly intact. Motor strength 5/5 in all extremities. Sensory grossly intact. Cerebellar exam normal. Normal gait. 19:22 Musculoskeletal/extremity: ROM: no acute changes, intact in all extremities, Circulation is intact in all extremities. Sensation intact. Tenderness to palpation to left sixth rib on axillary side.. Vital Signs: 14:06 BP 159 / 69; Pulse 82; Resp 16; Temp 98; Pulse Ox 96% ; Weight 69.85 kg; Pain 7/10; dd2 16:30 BP 150 / 60; Pulse 80; Resp 18; Temp 98; Pulse Ox 96% ; jp5 14:06 Pain Scale: Adult dd2 Kylie Coma Score: 15:31 Eye Response: spontaneous(4). Motor Response: obeys commands(6). Verbal Response: jp5 oriented(5). Total: 15. Trauma Score (Adult): 15:31 Eye Response: spontaneous(1); Verbal Response: oriented(1); Motor Response: obeys jp5 commands(2); Systolic BP: > 89 mm Hg(4); Respiratory Rate: 10 to 29 per min(4); [place] Score: 15; Trauma Score: 12 MDM: 14:01 Medical Screening Exam initiated dr5 19:22 Differential diagnosis: abrasion, contusion, fracture, sprain, strain. Data reviewed: dr5 vital signs, nurses notes, radiologic studies, plain films. Consideration of Admission/Observation Escalation of care including admission/observation considered. Escalation considered patient had chest pain and/or 3 or more ribs fracture. I considered the following discharge prescriptions or medication management in the emergency department I discussed and recommended Over The Counter medications, Medications were administered in the Emergency Department. See MAR. Care significantly affected by the following chronic conditions: Diabetes, Hypertension. Care significantly affected by the following Social Determinants of Health: Poor access to healthcare and/or lack of insurance, Poor access to transportation, Problems related to employment. Counseling: I had a detailed discussion with the patient and/or guardian regarding the historical points, exam findings, and any diagnostic results supporting the discharge/admit diagnosis, the presence of at least one elevated blood pressure reading (>120/80) during this emergency department visit, radiology results, the need for outpatient follow up, for definitive care, a family practitioner, to return to the emergency department if symptoms worsen or persist or if there are any questions or concerns that arise at home. Medication response: Response to treatment: the patient's symptoms have markedly improved after treatment. Special discussion: I discussed with the patient/guardian in detail that at this point there is no indication for admission to the hospital. It is understood, however, that if the symptoms persist or worsen the patient needs to return immediately for re-evaluation. Based on the history and exam findings, there is no indication for further emergent testing or inpatient evaluation. I discussed with the patient/guardian the need to see the primary care provider for further evaluation of the symptoms. ED course: Patient found to have rib fractures on sixth and possibly 7. I personally gave patient incentive spirometer and taught her how to use it to take deep breaths. Educated to take deep breaths to prevent pneumonia. Recommend increase hydration and pain control and taking deep breaths. Strict ER precautions given. 01/20 14:24 Order name: Ribs Left XRAY; Complete Time: 16:01 dr5 01/20 14:24 Order name: Chest Single View XRAY; Complete Time: 16:01 dr5 01/20 14:24 Order name: Knee Right 3 View XRAY; Complete Time: 16: dr5 Administered Medications: 15:41 Drug: Ketorolac IM 30 mg IM once Route: IM; Site: left deltoid; jp5 15:56 Not Given (Patient Refused): [id number] mg PO once jp5 Disposition Summary: 01/20/25 16:11 Discharge Ordered Notes: Location: Home dr5 Condition: Stable dr5 Diagnosis - Multiple fractures of ribs, left side - and 7th dr5 Followup: dr5 - With: Emergency Department - When: As needed - Reason: Worsening of condition Followup: dr5 - With: Private Physician - When: 1 - 2 days - Reason: Recheck today's complaints, Continuance of care, Re-evaluation by your physician Discharge Instructions: - Discharge Summary Sheet dr5 - How to Use an Incentive Spirometer dr5 - Rib Fracture, [id number] dr5 Forms: - Medication Reconciliation Form dr5 - Prescription Opioid Use dr5 - Patient Portal Instructions dr5 - Leadership Thank You Letter dr5 Prescriptions: - Tramadol 50 mg Oral Tablet - take 1 tablet ORAL route every 8 hours as needed; 12 tablet; Refills: 0, dr5 Product Selection Permitted - Medrol (Juan Manuel) 4 mg Oral Tablets, Dose Pack - take 1 tablet ORAL route as directed - follow package instructions; 1 packet; dr5 Refills: 0, Product Selection Permitted Signatures: Dispatcher [employer] EDMS Emily Rojas, RN RN jp5 BENEDICT JARAMILLO RN RN dd2 Shane Liang, NUCLEAR WASTE MANAGEMENT ENGINEER-C NUCLEAR WASTE MANAGEMENT ENGINEER-Cdr5 Corrections: (The following items were deleted from the chart) 14:24 14:24 Ribs Left+RAD.RAD.BRZ ordered. EDMT EDMS 14:24 14:24 Chest Single View+RAD.RAD.BRZ ordered. EDMT EDMS 14:24 14:24 Knee Right 3 View+RAD.RAD.BRZ ordered. EDMT EDMS 19:27 19:22 ED course: Patient found to have rib fractures on sixth and possibly 7. I dr5 personally gave patient incentive spirometer and taught her how to use it to take deep breaths.. dr5
--- NOTE | 2025-01-20 16:12 | ER ---
Nurse's Notes [facility] Name: Yelena Rouse Age: 84 yrs Sex: Female : 1940 Arrival Date: 01/20/2025 Time: 13:42 Bed 20 Private MD: Diagnosis: Multiple fractures of ribs, left side-6th and 7th Presentation: 01/20 14:06 Chief complaint: Patient states: FELL TRYING TO CATCH HER DOG ON MONDAY, LANDED ON LEFT dd2 SIDE/RIBS AND RT KNEE. PT DENIES LOC, HITTING HEAD, BLOOD THINNERS. Coronavirus screen: At this time, the client does not indicate any symptoms associated with coronavirus-19. Ebola Screen: No symptoms or risks identified at this time. Initial Sepsis Screen: Does the patient meet any 2 criteria? No. Patient's initial sepsis screen is negative. Does the patient have a suspected source of infection? No. Patient's initial sepsis screen is negative. Risk Assessment: Do you want to hurt yourself or someone else? Patient reports no desire to harm self or others. Onset of symptoms was January 17, 2025. 14:06 Method Of Arrival: Ambulatory dd2 14:06 Acuity: WILFRID 3 dd2 15:31 Care prior to arrival: None. Mechanism of Injury: Fall from standing position. 5 Triage Assessment: 14:09 General: Appears in no apparent distress. uncomfortable, Behavior is calm, cooperative, dd2 appropriate for age. Pain: Complains of pain in diaphragm, left lateral posterior chest, left lateral anterior chest and right knee Pain currently is 7 out of 10 on a pain scale. Musculoskeletal: Reports pain in diaphragm, left lateral posterior chest, left lateral anterior chest and right knee. Historical: - Allergies: 14:09 Aspirin (Upset stomach); dd2 14:09 Codeine; dd2 - PMHx: 14:09 chronic back pain; diabetes mellitus; Hypertensive disorder; Kidney disease; dd2 - PSHx: 14:09 section; dd2 - Immunization history:: Adult Immunizations up to date. - Infectious Disease History:: Denies. - Social history:: Smoking status: Patient denies any tobacco usage or history of. Screenin:33 [facility] ED Fall Risk Assessment (Adult) History of falling in the last 3 months, 5 including since admission Yes- single mechanical fall (1 pt) Confusion or Disorientation No (0 pts) Intoxicated or Sedated No (0 pts) Impaired Gait No (0 pts) Mobility Assist Device Used Yes (1 pt) Altered Elimination No (0 pt) Score/Fall Risk Level 0 - 2 = Low Risk Oriented to surroundings, Maintained a safe environment, Educated pt \T\ family on fall prevention, incl call for assistance when getting out of bed, Assessed \T\ reinforced patient's understanding of fall precautions, Provided non-skid footwear, Hourly rounding (assess needs \T\ fall precautionary measures) done, Used ambulatory aids as needed (educated on \T\ assisted with), Used gait belt as appropriate. Abuse screen: Denies threats or abuse. Denies injuries from another. Nutritional screening: No deficits noted. Tuberculosis screening: No symptoms or risk factors identified. Primary Survey: 15:31 NO uncontrolled hemorrhage observed. A: The client is awake and alert. The airway is jp5 patent. The client is alert. Airway: patent. Breathing/Chest: Spontaneous respiratory effort, equal unlabored respirations, breath sounds clear bilaterally, regular pattern, symmetrical chest rise and fall. Respiratory effort: spontaneous, unlabored, Breath sounds: clear, bilaterally. Respiratory pattern: regular, Chest inspection: symmetrical rise and fall of the chest. Circulation: No external hemorrhage present. Regular and strong central pulse, skin warm/dry/normal color. Hemorrhage: No external hemorrhage noted. Disability Client is alert. Exposure/Environment: A warming method has been applied: A warm blanket has been provided to the patient. 16:00 Reassessment Alertness and Airway: Awake and alert. The airway is patent. Breathing: jp5 Spontaneous respiratory effort, equal unlabored respirations, breath sounds clear bilaterally, regular pattern with symmetrical chest rise and fall. Circulation: No external hemorrhage noted. Regular and strong central pulse, skin warm/dry/normal color. Disability: Pupils Pupils are equal, round, reactive to light and accomodation. Alert. Assessment: 15:31 General: Appears in no apparent distress. comfortable, Behavior is calm, cooperative, jp5 appropriate for age. Vital Signs: 14:06 BP 159 / 69; Pulse 82; Resp 16; Temp 98; Pulse Ox 96% ; Weight 69.85 kg; Pain 7/10; dd2 16:30 BP 150 / 60; Pulse 80; Resp 18; Temp 98; Pulse Ox 96% ; jp5 14:06 Pain Scale: Adult dd2 [place] Coma Score: 15:31 Eye Response: spontaneous(4). Motor Response: obeys commands(6). Verbal Response: jp5 oriented(5). Total: 15. Trauma Score (Adult): 15:31 Eye Response: spontaneous(1); Verbal Response: oriented(1); Motor Response: obeys jp5 commands(2); Systolic BP: > 89 mm Hg(4); Respiratory Rate: 10 to 29 per min(4); Kylie Score: 15; Trauma Score: 12 ED Course: 13:46 Patient arrived in ED. al6 13:51 [facility] FNP-C [facility] 13:51 James Escobedo MD is Attending Physician. dr5 14:09 Triage completed. dd2 14:09 Arm band placed on right wrist. dd2 15:02 Ribs Left XRAY In Process Unspecified. EDMS 15:02 Chest Single View XRAY In Process Unspecified. EDMS 15:02 Knee Right 3 View XRAY In Process Unspecified. EDMS 15:31 Emily Rojas, JASWINDER is Primary Nurse. jp5 15:32 Patient has correct armband on for positive identification. Bed in low position. Call jp5 light in reach. Side rails up X 1. Provided Education on: call light use. 15:32 No provider procedures requiring assistance completed. jp5 16:30 Patient did not have IV access during this emergency room visit. jp5 Administered Medications: 15:41 Drug: Ketorolac IM 30 mg IM once Route: IM; Site: left deltoid; jp5 15:56 Not Given (Patient Refused): [id number] mg PO once jp5 Medication: 15:33 VIS not applicable for this client. jp5 Outcome: 16:11 Discharge ordered by MD. dr5 16:34 Discharged to home ambulatory, jp5 16:34 Condition: stable 16:34 Discharge instructions given to significant other, Instructed on discharge instructions, follow up and referral plans. no drinking with medication, no driving heavy equipment, medication usage, Demonstrated understanding of instructions, follow-up care, medications, Prescriptions given X 2, 16:41 Patient left the ED. jp5 Signatures: Dispatcher [employer] EDMS Emily Rojas RN RN jp5 BENEDICT JARAMILLO RN RN dd2 Shane Liang, TELECOMMUNICATION ENGINEER-C TELECOMMUNICATION ENGINEER-Cdr5 Ninfa Ward6 Corrections: (The following items were deleted from the chart) 15:55 15:41 Acetaminophen PO 1000 mg PO jp5 jp5
[2025-01-20 20:37] VITALS: TEMP 98; O2SAT 96
[2025-01-20 20:41] VITALS: BP 150/60
== END 2025-01-20 16:41 | disposition home or self-care (01) ==
LOC: ER 13:42
DX: S22.42XA Multiple fractures of ribs, left side, initial encounter for closed fracture (principal); W18.30XA Fall on same level, unspecified, initial encounter
CPT/HCPCS: 71045; 71100; 73562; 96372; 99284; J1885